=== PATIENT | male | born 1995 | race Caucasian/White ===

== ENCOUNTER 2023-08-13 18:41 | Emergency (ER) | payer BC ==
[~2023-08-13] VITALS: Ht 177.8 cm; Wt 68.0 kg
[2023-08-13 18:49] VITALS: BP 137/95; TEMP 98.5; O2SAT 98
[2023-08-13] MEDS ORDERED: PRED10TA23 PO (20:16)
[2023-08-13] MEDS ORDERED: dexaMETHasone SOD PHOSPHATE 4 MG/ML VIAL ONE (20:32)
[2023-08-13] MEDS: dexaMETHasone SOD PHOSPHATE 4 MG/ML VIAL IM ONE (20:36)
[2023-08-14] MEDS ORDERED: PRED10TA23 PO (15:44)
== END 2023-08-13 21:30 | disposition home or self-care (01) ==
LOC: ER 21:09
DX: R07.0 Pain in throat (principal); F41.9 Anxiety disorder, unspecified
CPT/HCPCS: 99283; 96372; J1100